=== PATIENT | male | born 1950 | race Hispanic/Latino ===

== ENCOUNTER 2020-10-28 10:06 | Day surgery (SDC) | payer MEDICARE ==
[2020-10-25 14:27] LABS: Protime INR 0.94
[2020-10-25 14:29] LABS: Absolute Lymphocytes (CBC) 1.6 K/uL (0.7-4.9); Basophils % 0.7 % (0-1.3); Hematocrit 44.5 % (39.6-49.0); Lymphocytes % 30.2 % (15.3-44.8); MPV 7.7 fL (7.6-11.3); RBC Red Blood Cell Count 5.05 M/uL (4.33-5.43)
--- NOTE | 2020-10-25 14:32 | RAD REPORT ---
EXAM DESCRIPTION: RAD - Chest Pa And Lat (2 Views) - 10/25/2020 2:24 pm CLINICAL HISTORY: Preop Chest pain. COMPARISON: No comparisons FINDINGS: The lungs are clear. The heart is normal in size. No displaced fractures. IMPRESSION: No acute or concerning finding suspected.
[2020-10-25 14:35] LABS: BUN Blood Urea Nitrogen 14 mg/dL (7-18); Bicarbonate 28 mmol/L (21-32); Glucose Level 110 mg/dL (74-106); Sodium Level 141 mmol/L (136-145)
[2020-10-28] MEDS ORDERED: NA CHLORIDE 0.9% 500 ML ONE (13:47)
[2020-10-28 14:11] VITALS: TEMP 96.8
[2020-10-28] MEDS ORDERED: HEPA 1000U/500MLS 1,000 UNIT/500 ML BAG IV ONE (14:31)
[2020-10-28] MEDS ORDERED: MIDAZOLAM HCL 2 MG/2 ML INJ ONE (14:36)
[2020-10-28] MEDS ORDERED: ATROPINE SULF 1 MG/10 ML SYR IV ONE (14:37)
[2020-10-28] MEDS ORDERED: FENTANYL CITR 100 MCG/2 ML ONE (14:37)
[2020-10-28] MEDS ORDERED: NA CHLORIDE 0.9% 0 ML ONE (14:37)
[2020-10-28 17:37] VITALS: BP 138/73; O2SAT 97
--- NOTE | 2020-10-28 23:01 | OP ---
Surgeon: Ulisses Flor MD Admitted today, 10/28/2020 to the [facility] as an outpatient for a left heart catheterization, selecti ve coronary arteriogram. Reason For Admission: Unstable angina. History Of Present Illness: is a 70-year-old Latin-[place] male brought to the cath l ab today, 10/28/2020 as an outpatient, prepped and draped in the routine sterile fashion, given Verse d and fentanyl for sedation. A 6-[place] sheath introduced in the right common femoral artery success fully using 10 cc of xylocaine in the Seldinger technique. The patient had [employer] used after the procedure was done. Robin catheter left and right were used to cannulate the left main and right m ain respectively. He was found to have a codominant system with 99% ostial RCA. Big vessel had 100% circumflex, big vessel that was a JOSE ENRIQUE 1 flow and the circumflex. He had a 60% to 70% proximal LAD and 70% to 80% proximal diagonal. There were no complications. Blood Loss: 5 cc. Total Conscious Sedation: 45 minutes. Postoperative Diagnosis: Severe coronary artery disease. Plan: For coronary artery bypass surgery. The patient remained in the hospital for 2 hours post cat heterization and he will go home today. I will make arrangements for him to have surgery as an outpatient. He will have a CD with reid BUTLER/KARLOS Voice ID: [id number] Report ID: [id number]
== END 2020-10-28 17:20 | disposition home or self-care (01) ==
LOC: CCL 10:06
DX: I25.110 Atherosclerotic heart disease of native coronary artery with unstable angina pectoris (principal); I25.82 Chronic total occlusion of coronary artery; I73.9 Peripheral vascular disease, unspecified; I10 Essential (primary) hypertension; G47.30 Sleep apnea, unspecified; E78.5 Hyperlipidemia, unspecified; E87.1 Hypo-osmolality and hyponatremia; M10.9 Gout, unspecified; Z20.822 Contact with and (suspected) exposure to COVID-19; Z82.49 Family history of ischemic heart disease and other diseases of the circulatory system
CPT/HCPCS: 85025; 80048; 36415; 85610; 85730; 71046; 93454; U0003; C1893; J2250; J3010; J7040; J1644; J0583